=== PATIENT | male | born 1955 | race Caucasian/White ===

== ENCOUNTER → 2017-06-26 | Outpatient (CLI) | payer BC ==
--- NOTE | 2017-06-26 14:47 | CT ---
Examination: CT of the chest without contrast Clinical History: Cigarette smoker, shortness of breath. Technique: Multiple axial images were obtained from the lung apices down to the lung bases. No intrav enous contrast was administered. Dose reduction techniques including automated exposure control (AEC) and adjustment of mA and kV were utilized. Comparison: None available. Findings: The heart is normal in size. Coronary artery calcifications are noted, suggestive of coronary artery disease. The thoracic aorta is mildly calcified, but is normal in caliber. The remainder of the great vessels are within normal limits. Evaluation of the hilar and mediastinal structures is limited due to a lack of intravenous contrast. No enlarged lymph nodes, by CT criteria, are noted in the mediastinum, duane or axilla bilaterally. No central obstructing bronchial lesion is noted. No pleural or pericardial effusion is noted. Marked bullous emphysematous lung disease is noted, with an upper lung zone predominance. There is a confluent opacity present at the left lung apex, which has associated air bronchograms and some associated peripheral calcifications. Findings could represent an area of scarring, atelectasis or pneumonia. Clinical correlation with continued followup until resolution is recommended. Comparis on with an old examination may also be of value. Scattered areas of mild bronchiectasis are noted. The visualized portion of the upper abdomen is unremarkable. No acute osseous abnormality is noted. Impression: 1. Marked bullous emphysematous lung disease, as described above. 2. There is a confluent opacity present at the left lung apex, which has associated air bronchograms and some associated peripheral calcifications. Findings could represent an area of scarring, atelecta sis or pneumonia. Clinical correlation with continued followup until resolution is recommended. Nav rison with an old examination may also be of value. 3. Scattered areas of mild bronchiectasis are noted. Reported By:
== END | disposition home or self-care (01) ==
LOC: RAD 13:53
PROVIDERS: ATTEND Internal Medicine Sleep Medicine
DX: J30.89 Other allergic rhinitis (principal); F17.210 Nicotine dependence, cigarettes, uncomplicated; J43.8 Other emphysema; J47.9 Bronchiectasis, uncomplicated
CPT/HCPCS: 71250